=== PATIENT | male | born 1965 | race Caucasian/White ===

== ENCOUNTER → 2024-01-29 | Outpatient (CLI) | payer MEDICARE, MEDICAID, SELFPAY ==
--- NOTE | 2024-01-29 07:45 | XR_ITS ---
Examination: MRI left hip without intravenous contrast. Date and time of exam: January 29, 2024 0758 hours INDICATIONS: Left hip pain and burning sensation weakness in the left leg joint locking beginning 10 years ago worse the last 4 years Technique: Multiple MRI images of the left hip have been obtained T1 weighted coronal sections, TR 500, TE 12 Proton density coronal fat saturated images, TR 3000, TE 71 T2-weighted coronal images, 5850, TE 104 T1-weighted axial images, TR 521, TE 12 T2-weighted axial fat suppressed images, TR 5730, TE 103. Findings: No left hip fracture or bone marrow contusion or avascular necrosis Mild narrowing hip joints Small lntit-jy-avoy images demonstrate small superior labral tears Right hip bones of the pelvis intact Urinary bladder intact No prostatomegaly IMPRESSION: No left hip occult fracture bone contusion marrow edema or avascular necrosis Small superior labral tears
--- NOTE | 2024-01-29 08:42 | XR_ITS ---
Examination:Left hip AP, lateral, AP pelvis 3 views Technique: Hip AP lateral, AP pelvis, 3 views Exam date and time:January 29, 2024 0909 hours INDICATIONS: Left hip pain beginning 12 years ago getting worse FINDINGS: Moderate osteopenia No left hip fracture or dislocation Mild bilateral hip osteoarthritis Right hip bones of the pelvis intact IMPRESSION: Mild bilateral hip osteoarthritis.
== END | disposition home or self-care (01) ==
PROVIDERS: PCP Family Medicine; Referring Provider Student in an Organized Health Care Education/Training Program; Visit Provider Student in an Organized Health Care Education/Training Program
DX: M16.0 Bilateral primary osteoarthritis of hip (principal); S73.192A Other sprain of left hip, initial encounter; X58.XXXA Exposure to other specified factors, initial encounter
CPT/HCPCS: 73502; 73721

== ENCOUNTER → 2024-04-16 | Outpatient (CLI) | payer MEDICARE, SELFPAY ==
[2024-04-16 12:03] LABS: Basophils % (Auto) 0 % (0-2.5); Eosinophils # (Auto) 0.2 Thou/mm3 (0.0-0.5); Eosinophils % (Auto) 2 % (0-10); Hematocrit 34.1 % (41.0-53.0); Hemoglobin 11.7 g/dL (13.5-16.0); Immature Granulocytes % (Auto) 0 % (0-0); Immature Granulocytes Auto 0.04 Thou/mm3 (0.00-0.00); Lymphocytes # (Auto) 3.1 Thou/mm3 (1.0-4.8); Lymphocytes % (Auto) 32 % (10-50); Mean Corpuscular HGB Conc 34.3 g/dl (31.0-37.0); Mean Corpuscular Hemoglobin 30.4 pg (25.0-35.0); Mean Corpuscular Volume 89 fL (80-100); Monocytes # (Auto) 0.7 Thou/mm3 (0.0-0.8); Monocytes % (Auto) 7 % (0-12); Neutrophils # (Auto) 5.6 Thou/mm3 (1.8-7.7); Neutrophils % (Auto) 58 % (37-80); Nucleated Red Blood Cell % 0 /100 WBC (0); Platelet Count 269 Thou/mm3 (140-440); Red Blood Count 3.85 Miln/mm3 (4.50-5.90); White Blood Count 9.7 Thou/mm3 (3.8-10.6)
[2024-04-16 12:18] LABS: LDH (Lactate Dehydrogenase) 176 U/L (120-246)
[2024-04-16 12:30] LABS: Path Review Blood Smear Sent to Pathologist
== END | disposition home or self-care (01) ==
PROVIDERS: PCP Specialist; Referring Provider Specialist; Visit Provider Specialist
DX: D72.829 Elevated white blood cell count, unspecified (principal)
CPT/HCPCS: 36415; 83615; 85025

== ENCOUNTER → 2024-12-04 | Outpatient (CLI) | payer MEDICARE, MEDICAID, SELFPAY ==
--- NOTE | 2024-12-04 16:00 | XR_ITS ---
Examination: MRI thoracic spine without contrast. Date and time of exam: December 04, 2024, 1720 hours INDICATIONS: Low back pain 40 years getting worse Technique: Multiple sagittal and axial images of the thoracic spine have been obtained. T1 weighted localizer, sagittal T2 weighted images, TR 30-50, TE 148, T1 weighted sagittal images, TR 650, TE 14, T2-weighted transverse images, TR 6770, TE 142 Findings: Adequate alignment thoracic vertebral bodies Severe osteopenia. Chronic osteoporotic mild wedging of mid dorsal vertebral bodies Moderate diffuse thoracic disc narrowing Diffuse thoracic disc desiccation Multilevel 1 to 2 mm thoracic disc bulges, no displacement of the thoracic cord Thoracic cord appears atrophic, no syrinx cavity Impression: Moderate diffuse thoracic degenerative disc disease Multilevel minimal thoracic disc bulges, no displacement of the thoracic cord
--- NOTE | 2024-12-04 16:30 | XR_ITS ---
Examination: MRI lumbar spine without contrast Date and time of exam: December 04, 2024, 1720 hours, comparison December 13, 2023 INDICATIONS: Low back pain for years, worse the last 5 years numbness in the right foot Technique: Multiple MRI axial and sagittal sections lumbar spine. Sagittal T2-weighted images, TR 3500, TE 118 T1 weighted transverse sections, TR 688 T8.5, T2-weighted sagittal sections T1 weighted sagittal sections TR 621, TE 30 T2 axial sections, TR 4, 190, TE 84. Findings: Transpedicular lumbar fusion L4-L5 with anatomic alignment Adequate marrow signal lumbar vertebral bodies No spondylolisthesis L5-S1 2 mm right paracentral disc protrusion indenting the ventral margin of thecal sac, axial image 2 L4-L5 no disc protrusion L3-L4 moderate to severe overall spinal stenosis, axial image 8 with 4 mm left paracentral subarticular disc bulge, facet arthropathy and thickening of ligamentum flavum although no definite ganglionic impression L2-L3 2 mm central lumbar disc bulge L1-2 no disc protrusion IMPRESSION: Transpedicular lumbar fusion L4-L5 with anatomic alignment L3-L4 moderate to severe overall spinal stenosis L2-L3 2 mm central lumbar disc bulge
== END | disposition home or self-care (01) ==
LOC: SMRI 15:16
PROVIDERS: PCP Family Medicine; Referring Provider Radiology Neuroradiology; Visit Provider Radiology Neuroradiology
DX: M51.360 Other intervertebral disc degeneration, lumbar region with discogenic back pain only (principal); M43.26 Fusion of spine, lumbar region; M51.34 Other intervertebral disc degeneration, thoracic region
CPT/HCPCS: 72146; 72148

== ENCOUNTER → 2025-02-16 | Outpatient (CLI) | payer MEDICARE, MEDICAID, SELFPAY ==
--- NOTE | 2025-02-16 09:09 | EKG_ITS ---
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
== END | disposition home or self-care (01) ==
PROVIDERS: PCP Family Medicine; Referring Provider Family Medicine; Visit Provider Family Medicine
DX: R07.9 Chest pain, unspecified (principal); M81.0 Age-related osteoporosis without current pathological fracture; M85.88 Other specified disorders of bone density and structure, other site
CPT/HCPCS: 93005